=== PATIENT | male | born 1995 | race Caucasian/White ===

== ENCOUNTER 2018-10-16 11:56 | Emergency (ER) | payer OTHER ==
--- NOTE | 2018-10-16 12:28 | RAD ---
FXR Clavicle Rt 2 V STANDARD: 10/16/2018 12:01 PM CLINICAL INDICATION: Injury with pain COMPARISON: None. FINDINGS: Fracture:No fracture. Arthropathy:None of significance. Incidental findings:None of significance. IMPRESSION: 1. No acute osseous abnormality.
[2018-10-16] MEDS ORDERED: HYDROcodone/Acetaminophen 10/325 mg Tablet ONE (14:14)
== END 2018-10-16 13:01 | disposition home or self-care (01) ==
LOC: ERS 11:56
DX: S43.204A Unspecified dislocation of right sternoclavicular joint, initial encounter (principal); F17.220 Nicotine dependence, chewing tobacco, uncomplicated; V80.010A Animal-rider injured by fall from or being thrown from horse in noncollision accident, initial encounter

== ENCOUNTER 2019-04-27 04:59 | Inpatient (IN) | payer OTHER ==
[2019-04-27] MEDS ORDERED: Ondansetron PF 4 MG/2 ML Vial IVP PRN (05:26)
[2019-04-27] MEDS ORDERED: Dextrose 50% Abboject 50 ML SYRINGE SLOW IVP PRN (05:26)
[2019-04-27] MEDS ORDERED: HumaLOG 300 UNITS/3 ML VIAL SC PRN (05:26)
[2019-04-27] MEDS ORDERED: Dextrose 5% in Water 1,000 ML IV PRN (05:26)
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
[2019-04-27 07:23] VITALS: BMI 21.5
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
[2019-04-27] MEDS: Sodium Chloride 0.9% 1,000 ML IV SCH ×2 (08:46→19:21)
[2019-04-27] MEDS ORDERED: CEFAZOLIN 2 GM in Premix Bag 1 BAG IVPB SCH (09:30)
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
[2019-04-27] MEDS ORDERED: Bupivacaine PF 0.5% 30 ML VIAL ONE (12:44)
[2019-04-27] MEDS ORDERED: Fentanyl 100 MCG/2 ML VIAL ONE (13:17)
[2019-04-27] MEDS ORDERED: Ondansetron HCl/PF 4 MG/2 ML Vial IVP PRN (13:44)
[2019-04-27] MEDS ORDERED: Promethazine HCl 25 MG/ML VIAL SLOW IVP PRN (13:44)
[2019-04-27] MEDS ORDERED: Promethazine HCl 25 MG/ML VIAL IM PRN (13:44)
[2019-04-27] MEDS ORDERED: Meperidine HCl/PF 25 MG/ML VIAL ONE (14:22)
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
[2019-04-27] MEDS ORDERED: traMADol HCl 50 MG TAB PO PRN (15:35)
[2019-04-27] MEDS ORDERED: Cyclobenzaprine 10 MG TAB PO PRN (15:35)
[2019-04-27] MEDS: Acetaminophen 500 MG TAB PO SCH ×3 (18:49→23:57)
[2019-04-27] MEDS: CEFAZOLIN 2 GM in Premix Bag 1 BAG IVPB SCH (20:13)
[2019-04-27] MEDS: Ibuprofen 600 MG TAB PO SCH (21:15)
[2019-04-27] MEDS: traMADol HCl 50 MG TAB PO PRN (21:21)
[2019-04-28] MEDS: CEFAZOLIN 2 GM in Premix Bag 1 BAG IVPB SCH ×2 (03:17→13:02)
[2019-04-28] MEDS: Acetaminophen 500 MG TAB PO SCH (05:35)
[2019-04-28] MEDS: Ibuprofen 600 MG TAB PO SCH ×2 (05:35→13:30)
[2019-04-28] MEDS: traMADol HCl 50 MG TAB PO PRN (05:37)
[2019-04-28 12:07] VITALS: BP 118/67; TEMP 98
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
== END 2019-04-28 13:39 | disposition home or self-care (01) | DRG 505 ==
LOC: ERS 04:59 → SJJU 06:59
PROVIDERS: ADMIT Surgery; ATTEND Surgery
PROC: 0QSR04Z Reposition Left Toe Phalanx with Internal Fixation Device, Open Approach (ICD-10-PCS; principal; 2019-04-27)
DX: S92.312B Displaced fracture of first metatarsal bone, left foot, initial encounter for open fracture (principal); F17.220 Nicotine dependence, chewing tobacco, uncomplicated; W32.0XXA Accidental handgun discharge, initial encounter; Y93.89 Activity, other specified
CPT/HCPCS: 76000; 99285; G0390; J0690; J2175; J3010; S0020

== ENCOUNTER 2024-08-16 14:34 | Outpatient (CLI) | payer OTHER | END 2024-08-16 14:35 | disposition home or self-care (01) | LOC: BICRAD 14:34 | PROVIDERS: ATTEND Chiropractor | DX: M79.672 Pain in left foot (principal); Z98.890 Other specified postprocedural states ==